=== PATIENT | female | born 1955 | race Caucasian/White ===

== ENCOUNTER 2017-05-29 21:18 | Emergency (ER) | payer BC ==
[2017-05-29 21:47] VITALS: BP 138/69
[2017-05-29] MEDS ORDERED: GuaiFENesin DM* 5 ML UDC PO ONE (21:57)
[2017-05-29] MEDS ORDERED: ceFUROXime TAB(*) 250 MG PO ONE (21:57)
[2017-05-29] MEDS ORDERED: Naproxen TAB* 250 MG PO ONE (21:57)
[2017-05-29] MEDS ORDERED: guaiFENesin ER TAB 600 MG PO PRN (21:58)
[2017-05-29] MEDS ORDERED: ACETAMINOPHEN 1000 MG PO PRN (21:58)
--- NOTE | 2017-05-29 22:11 | UC ---
HPI Febrile Illness - HPI Summary HPI Summary: 62 yo WF c/o fevers, B/L ear pain, sinus pains with yellow d/c associated with cough, yellow sputum with pleuritic CP x 1 week, worsening, in spite of taking Mucinex D and Tylenol. - History of Current Complaint Chief Complaint: UCGeneralIllness Time Seen by Provider: 05/29/17 21:49 Hx Obtained From: Patient Timing: Lasting Days Initial Severity: Severe Current Severity: Moderate Pain Intensity: 7 - Allergy/Home Medications Allergies/Adverse Reactions: Allergies Allergy/AdvReac Type Severity Reaction Status Date / Time No Known Allergies Allergy Verified 05/29/17 21:38 Home Medications: Home Medications Acetaminophen [Tylenol Extra Strength] 1,000 mg PO Q6H PRN 05/29/17 [History Confirmed 05/29/17] guaiFENesin ER TAB [Mucinex*] 600 mg PO BID PRN 05/29/17 [History Confirmed ] PMH/Surg Hx/FS Hx/Imm Hx - Additional Past Medical History Additional PMH: none Previously Healthy: Yes - Surgical History Surgical History: Yes Surgery Procedure, Year, and Place: Rt KNEE -MMT 03/2006. D & C. TONSILS - Social History Alcohol Use: None Substance Use Type: None Smoking Status (MU): Never Smoked Tobacco Review of Systems Constitutional: Fever, Chills, Fatigue Skin: Negative Eyes: Negative ENT: Ear Ache, Sinus Congestion, Sinus Pain/Tenderness Respiratory: Cough Cardiovascular: Negative Gastrointestinal: Negative Genitourinary: Negative Motor: Negative Neurovascular: Negative Musculoskeletal: Negative Neurological: Negative Psychological: Negative All Other Systems Reviewed And Are Negative: Yes Physical Exam Triage Information Reviewed: Yes Vital Signs: Initial Vital Signs Temp 38.6 C 05/29/17 21:40 Pulse 102 05/29/17 21:40 Resp 18 05/29/17 21:40 BP 138/69 05/29/17 21:40 Pulse Ox 95 05/29/17 21:40 Eye Exam: Normal ENT Exam: Normal ENT: Positive: Pharyngeal erythema, Nasal congestion, Nasal drainage, Sinus tenderness, Other - B/L posterior auricular tenderness Dental Exam: Normal Neck exam: Normal Neck: Positive: 1 Respiratory: Positive: Rhonchi. Negative: Stridor, Wheezing Cardiovascular Exam: Normal Abdominal Exam: Normal Musculoskeletal Exam: Normal Neurological Exam: Normal Psychological Exam: Normal Skin Exam: Normal Course/Dx - Course Course Of Treatment: rhonchi with cough, B/l post. auricular tenderness, sinus drainage- will tx for B/L OM, sinusitis and bronchitis - Diagnoses Clinic Provider Diagnoses: B/L OM. Acute bronchitis. Sinusitis Discharge - Discharge Plan Condition: Stable Disposition: HOME Prescriptions: ceFUROXime TAB(*) [Ceftin TAB 250 MG(*)] 500 mg PO BID 7 Days #14 tab Patient Education Materials: Sinusitis (ED), Ear Infection (ED), Acute Bronchitis (ED) Referrals: Gopi Pedraza MD [Primary Care Provider] - Additional Instructions: Alternate Tylenol and motrin for fever, if fever still persistent, take one tab of motrin and one tab of tylenol together Mucinex DM BID for cough and for mucolytic effect.
== END 2017-05-29 22:16 | disposition home or self-care (01) ==
LOC: UCCORT 21:18
DX: H66.93 Otitis media, unspecified, bilateral (principal); J20.9 Acute bronchitis, unspecified; J32.9 Chronic sinusitis, unspecified
CPT/HCPCS: 99212; A9270-GY; G0463

== ENCOUNTER 2018-09-19 14:06 | Emergency (ER) | payer BC ==
[2018-09-19 16:09] VITALS: BP 149/82
[2018-09-19] MEDS ORDERED: Ibuprofen TAB* 600 MG PO ONE (16:21)
--- NOTE | 2018-09-19 16:22 | UC ---
Throat Pain/Nasal Dyllan HPI - HPI Summary HPI Summary: 63-year-old woman comes in with a chief complaint of upper respiratory tract infection symptoms for 2 days. She's been having fevers she's been taking acetaminophen which doesn't seem to be helping very much. She has been having chest congestion and coughing up yellow sputum. Her rhinorrhea is clear. She has a generalized headache. She does have some ear pain. - History of Current Complaint Chief Complaint: UCGeneralIllness Stated Complaint: FEVER,BANERJEE,COUGH,ACHY Time Seen by Provider: 09/19/18 16:05 Pain Intensity: 8 - Allergies/Home Medications Allergies/Adverse Reactions: Allergies Allergy/AdvReac Type Severity Reaction Status Date / Time No Known Allergies Allergy Verified 09/19/18 16:09 Home Medications: Home Medications Acetaminophen [Tylenol Extra Strength] 2 tab PO ONCE 09/19/18 [History Confirmed 09/19/18] PMH/Surg Hx/FS Hx/Imm Hx Previously Healthy: Yes - Surgical History Surgical History: Yes Surgery Procedure, Year, and Place: Rt KNEE -MMT 03/2006. D & C. TONSILS - Family History Known Family History: Positive: Non-Contributory - Social History Alcohol Use: None Substance Use Type: None Smoking Status (MU): Never Smoked Tobacco Review of Systems All Other Systems Reviewed And Are Negative: Yes Constitutional: Positive: Fever Skin: Positive: Negative Eyes: Positive: Negative ENT: Positive: Sore Throat, Ear Ache, Nasal Discharge, Sinus Congestion Respiratory: Positive: Cough, Other - SEE HPI Cardiovascular: Positive: Negative Gastrointestinal: Positive: Negative Motor: Positive: Negative Neurovascular: Positive: Negative Musculoskeletal: Positive: Negative Neurological: Positive: Headache Psychological: Positive: Negative Is Patient Immunocompromised?: No Physical Exam Triage Information Reviewed: Yes Appearance: No Pain Distress, Well-Nourished, Ill-Appearing - MILD Vital Signs: Initial Vital Signs Temp 99.6 F 09/19/18 16:04 Pulse 91 09/19/18 16:04 Resp 18 09/19/18 16:04 BP 149/82 09/19/18 16:04 Pulse Ox 98 09/19/18 16:04 Vital Signs Reviewed: Yes Eye Exam: Normal Eyes: Positive: Conjunctiva Clear ENT: Positive: Pharynx normal, Nasal congestion, Nasal drainage, TMs normal Neck: Positive: Supple Respiratory: Positive: Lungs clear, Normal breath sounds, No respiratory distress Cardiovascular: Positive: RRR Musculoskeletal Exam: Normal Musculoskeletal: Positive: Strength Intact, ROM Intact Neurological Exam: Normal Neurological: Positive: Alert, Muscle Tone Normal Psychological Exam: Normal Psychological: Positive: Age Appropriate Behavior Skin Exam: Normal Throat Pain/Nasal Course/Dx - Course Course Of Treatment: DISCUSSED VIRAL VERSES BACTERIAL INFECTION AND THE ROLE OF ANTIBIOTICS. THE PATIENT PREFERS TO BE ON ANTIBIOTICS AT THIS TIME. - Differential Dx/Diagnosis Provider Diagnosis: Upper respiratory infection Discharge - Sign-Out/Discharge Documenting (check all that apply): Patient Departure All imaging exams completed and their final reports reviewed: No Studies - Discharge Plan Condition: Stable Disposition: HOME Prescriptions: Azithromyxin HAN (NF) [Z-Han (Zithromax) 250 mg tabs #6] 2 tab PO .TODAY, THEN 1 DAILY #6 tab Patient Education Materials: Fever in Adults (ED), Upper Respiratory Infection (ED) Referrals: Gopi Pedraza MD [Primary Care Provider] - Additional Instructions: FOLLOW UP WITH YOUR DOCTOR IF NOT COMPLETELY IMPROVED. GET REEVALUATED SOONER IF WORSE OR ANY QUESTIONS OR CONCERNS. - Billing Disposition and Condition Condition: STABLE Disposition: Home
[2018-09-19 16:38] LABS: Influenza A Molecular NEGATIVE (Negative); Influenza B Molecular NEGATIVE (Negative)
== END 2018-09-19 16:50 | disposition home or self-care (01) ==
LOC: UCCORT 14:06
DX: J06.9 Acute upper respiratory infection, unspecified (principal)
CPT/HCPCS: 99212; A9270-GY; G0463